=== PATIENT | female | born 1965 | race Caucasian/White ===

== ENCOUNTER 2017-02-07 16:45 | Inpatient (IN) | payer SELFPAY ==
--- NOTE | ~2017-02-07 | HP ---
History And Physical [place] [id number] [facility] [place]. [address] NAME: ISMAEL CARPENTER : 67 STATUS : ADM Jorge PAT#: [id number] AGE: 52 ADM/REG DATE : 02/07/17 MR#: [id number] REPORT SERV DATE: 02/08/17 DICTATED BY: STEFFEN PIPER DATE: 02/08/17 REPORT STATUS : Draft TRANSCRIBED BY: MODL DATE: 02/08/17 DATE OF ADMISSION: 02/07/2017 REASON FOR ADMISSION: Chest and abdominal pain. HISTORY OF PRESENT ILLNESS: Ms. Carpenter is a 52-year-old female with history of COPD, hypertension, who presents to the emergency department today with a chief complaint of pain from her thighs to her thorax. The patient says she began having an episode of chest pain six days ago like a knife stabbing in her chest with associated nausea, took Zofran, did not seek medical attention because of lack of insurance and concern for payment. She also had at around the same time some left lower extremity thigh pain that put her to bed. She has had episodic vomiting with difficulty doing her regular activities, although the leg pain has ceased. She continues to have issues with chest pain throughout the course of the week including radiating to her left arm with associated hand numbness in the right side as well. The chest pain at the current time remains sharp, radiating to her bilateral shoulder blades. She also complains of right upper quadrant pain, but no further leg pain, though she still has some tightness in her legs. She got some nitroglycerin in the emergency department that did not alleviate the pain, it made it feel somewhat better. She has flank pain, dizziness, shortness of breath, but no coughing or wheezing. No fever and chills. No gastrointestinal/genitourinary complaints. No other neurologic complaints. She denies any bleeding. She has noticed some weight gain over the previous year or so. PAST MEDICAL HISTORY: Otherwise negative. MEDICATIONS: She takes only dvzz-qck-szoopii medications. PRIMARY CARE PHYSICIAN: Has no primary care provider. ALLERGIES: HAS NO ALLERGIES. FAMILY HISTORY: Positive for coronary artery disease. SOCIAL HISTORY: The patient is a smoker. PHYSICAL EXAMINATION: VITAL SIGNS: On presentation, blood pressure 175/99, pulse 99, respiration 18, afebrile, satting 95%. GENERAL: Awake, alert, and oriented x3. No apparent distress. HEENT: Pupils are equal and reactive to light. Extraocular movements are intact. No cranial nerve deficits. Moist membranes oropharynx. Normal oropharynx. NECK: No jugular venous distention, carotid bruits, lymphadenopathy, or goiter. CARDIAC: Regular rate and rhythm. No murmurs, gallops, or rubs. She had a very tender precordium, a minimally tender back throughout her upper back bergeron. She had however exquisite subxiphoid tenderness and in her lower rib cage. LUNGS: Clear to auscultation bilaterally. ABDOMEN: Severe epigastric tenderness with right upper quadrant tenderness, but no Smith History And Physical [address] [address] NAME: ISMAEL CARPENTER : 67 STATUS : ADM Jorge PAT#: [id number] AGE: 52 ADM/REG DATE : 02/07/17 MR#: [id number] REPORT SERV DATE: 02/08/17 DICTATED BY: STEFFEN PIPER DATE: 02/08/17 REPORT STATUS : Draft TRANSCRIBED BY: HORACE DATE: 02/08/17 sign. She had less significant pain in her lower quadrants bilaterally. There was some moderate left upper quadrant pain. Bowel sounds are normal and active. She is obese. EXTREMITIES: No cyanosis, clubbing, or edema. She had a slight amount of pain in her left thigh, but no Homans sign nor cord. She had good pulses and capillary refill. NEUROLOGIC: Intact sensory motor function in all four extremities. SKIN: Warm and dry. PSYCHIATRIC: She is appropriate. LABORATORY EVALUATION: Sodium 134, potassium 3.7, chloride 103, bicarb 27, BUN 6, creatinine 0.7, glucose 121. White count 10,000, H and H 15 and 44, platelets 191. Troponin-I negative. Chest x-ray, reviewed by me showed no apparent disease. EKG reveals normal sinus rhythm. No ST or T-wave changes. No S1, Q3, T3 pattern. Doppler ultrasound of the left lower extremity was negative. I reviewed the images myself and saw no arterial issues either. ASSESSMENT AND PLAN: 1. Severe intractable epigastric pain most likely due to esophageal spasm likely due to gastroesophageal reflux disease. It was more likely than pancreatic or biliary causes. Pericardial causes are also very unlikely as are her venous thromboembolic disease, ischemia, or dissecting aorta. We will check a lipase sedimentation rate, D-dimer, and troponin. Recommend a topical care to the esophagus, proton pump inhibitor, and Carafate. If symptoms persist on 02/08 after treating these milder causes, we may consider a more thorough evaluation such as an ultrasound for evaluation of the gallbladder and of the aorta. Nuclear Medicine stress testing I think would be behind all these in probability, but assessing risk factors given her tobacco abuse to exclude diabetes or hyperlipidemia would be reasonable. 2. History of chronic obstructive pulmonary disease based on tobacco abuse. No current exacerbation. 3. Elevated blood pressure, history of hypertension. We will follow this expectantly. Beta-blockers will be scheduled as well as nitroglycerin given the unlikely, but not completely excluded cardiovascular cause of her condition. ESTER/HORACE Steffen Piper M.D. / [id number] CC: Steffen Piper M.D.
--- NOTE | ~2017-02-07 | EGD ---
EGD REPORT [facility] [address] [place] [address] NAME: LEXI CARPENTER : 67 STATUS : ADM Jorge PAT#: [id number] AGE: 52 ADM/REG DATE : 02/07/17 MR#: [id number] REPORT SERV DATE: 02/12/17 DICTATED BY: TYRON MENCHACA DATE: 02/12/17 REPORT STATUS : Draft [facility] DATE: 02/12/17 Endoscopy Center Patient Name: Lexi Carpenter Date of : 1965 Attending MD: TYRON MENCHACA MD Procedure Date No Time: 02/12/2017 Procedure: Colonoscopy Indications: Abdominal pain in the right lower quadrant, Abdominal pain in the right upper quadrant Referring MD: CATRACHITA ASKEW MD Medicines: Monitored Anesthesia Care Complications: No immediate complications. Estimated blood loss: Minimal. Procedure: Pre-Anesthesia Assessment: - ASA Grade Assessment: III - A patient with severe systemic disease. After I obtained informed consent, the scope was passed under direct vision. Throughout the procedure, the patient's blood pressure, pulse, and oxygen saturations were monitored continuously. The [id number] was introduced through the anus and advanced to the terminal ileum, with identification of the appendiceal orifice and IC valve. The colonoscopy was performed without difficulty. The patient tolerated the procedure well. The quality of the bowel preparation was good. Findings: The perianal and digital rectal examinations were normal. Pertinent negatives include no palpable rectal lesions. A sessile polyp was found in the sigmoid colon. The polyp was 4 mm in size. The polyp was removed with a cold biopsy forceps. Resection and retrieval were complete. Estimated blood loss was minimal. The terminal ileum appeared normal. The exam was otherwise without abnormality on direct and retroflexion views. Impression: - One 4 mm polyp in the sigmoid colon. Resected and retrieved. - The examination was otherwise normal on direct and retroflexion views. Recommendation: - Return patient to [facility] for ongoing care. - Await pathology results. - Repeat colonoscopy for surveillance based on pathology results. EGD REPORT [facility] [address] [facility] [address] [place] [address] NAME: LEXI CARPENTER : [birth year] STATUS : ADM Jorge PAT#: [id number] AGE: 52 ADM/REG DATE : 02/07/17 MR#: [id number] REPORT SERV DATE: 02/12/17 DICTATED BY: TYRON MENCHACA DATE: 02/12/17 REPORT STATUS : Draft TRANSCRIBED BY: [employer] DATE: 02/12/17 - Return to GI clinic in 6 weeks. Procedure Code(s): --- Professional --- 48712, Colonoscopy, flexible, proximal to splenic flexure; with biopsy, single or multiple Diagnosis Code(s): --- Professional --- D12.5, Benign neoplasm of sigmoid colon R10.31, Right lower quadrant pain R10.11, Right upper quadrant pain CPT copyright 2013 [employer]. All rights reserved. The codes documented in this report are preliminary and upon pastry wrapper review may be revised to meet current compliance requirements. Tyron Menchaca MD TYRON MENCHACA MD 02/12/2017 9:44 AM This report has been signed electronically. Number of Addenda: 0 Note Initiated On: 02/12/2017 8:44 AM Scope Withdrawal Time 0 hours 9 minutes 13 seconds [address] [place] [address]
--- NOTE | ~2017-02-07 | DS ---
Discharge Summary [place] [address] [place]. [address] NAME: ISMAEL CARPENTER : 67 STATUS : DIS IN PAT#: [id number] AGE: 52 ADM/REG DATE : 02/07/17 MR#: [id number] REPORT SERV DATE: 02/16/17 DICTATED BY: BLOSSOM WINTERS DATE: 02/12/17 REPORT STATUS : Draft TRANSCRIBED BY: HORACE DATE: 02/12/17 ADMISSION DATE: 02/07/2017 DISCHARGE DATE: 02/12/2017 DISCHARGE DIAGNOSES: 1. Epigastric abdominal plain/chest pain. 2. History of tobacco abuse. 3. Hypertension. 4. NSAID use. DISCHARGE MEDICATIONS: Include 1. Levsin 0.125 mg sublingual before meals. 2. Reglan 5 mg p.o. with meals and at bedtime. 3. Protonix 40 mg p.o. b.i.d. 4. Mylicon 80 mg p.o. b.i.d. 5. Carafate 1 g p.o. with meals and at bedtime. 6. Multivitamin p.o. daily. 7. ProAir HFA 2 puffs inhaled q.6 hours p.r.n. 8. Proventil neb 0.5 mL inhaled q.6 p.r.n. DISPOSITION AND FOLLOWUP: The patient is medically stable for discharge. Follow up with primary care physician in one week. HISTORY AND PHYSICAL: Per initial assessment. DISCHARGE VITALS: Temperature 96.7, heart rate 54, blood pressure 97/51, respiratory rate 16, and O2 saturation 92 on room air. DISCHARGE LABS: WBC of 6.7, hemoglobin 13.2, hematocrit 39.7, platelets 151. Sodium 139, potassium 3.3, chloride 103, bicarb 30, BUN 3, creatinine 0.72. Calcium 9.1. TSH 2.2. Hemoglobin A1c of 5.2. IMAGIN. Abdominal survey, impression;. a. Status post cholecystectomy. There is no biliary dilatation. b. Obscuration of portion of the pancreas by gas. Otherwise, negative abdominal ultrasound. 2. Chest x-ray, impression; normal. 3. GI study with air, impression; no upper intestinal ulcerative disease identified. 4. Venous Doppler. No evidence of acute left lower extremity deep venous thrombosis. 5. No evidence of abdominal aortic aneurysm. Normal flow into abdominal aorta and right common iliac artery. 6. Left common iliac artery is obscured by gas. HOSPITAL COURSE: 52-year-old woman with a past medical history of COPD and hypertension, comes into the ED complaining of epigastric abdominal pain/chest pain. The patient was Discharge Summary [place] [address] [facility] [place]. [address] NAME: ISMAEL CARPENTER : [birth year] STATUS : DIS IN PAT#: [id number] AGE: 52 ADM/REG DATE : 02/07/17 MR#: [id number] REPORT SERV DATE: 02/16/17 DICTATED BY: BLOSSOM WINTERS DATE: 02/12/17 REPORT STATUS : Draft TRANSCRIBED BY: HORACE DATE: 02/12/17 admitted for further workup. No evidence of acute coronary syndrome. The patient had wished Gastroenterology to come and evaluate her. GI was consulted. They were graceful enough to do endoscopy and colonoscopy. EGD results per procedure. EGD showed gastritis. Colonoscopy is negative showed one 4 mm polyp, which was removed. By the day of discharge, the patient's symptoms have resolved. She has responded well to medical management, which has included PPI, simethicone, Carafate, Reglan, and Levsin. The patient is medically stable for discharge. Follow up with primary care physician in one week. Instructed to abstain from NSAIDs. Instructed to follow GI recommendations. Total time for discharge planning 35 minutes. DICTATED BY: MD DOROTHY Rangel/HORACE Clint Ruvalcaba MD / [id number] CC: Clint Ruvalcaba MD NO PCP
--- NOTE | ~2017-02-07 | EGD ---
EGD REPORT [facility] [address] [address] NAME: LEXI CARPENTER : 67 STATUS : ADM Jorge PAT#: [id number] AGE: 52 ADM/REG DATE : 02/07/17 MR#: [id number] REPORT SERV DATE: 02/11/17 DICTATED BY: TYRON MENCHACA DATE: 02/11/17 REPORT STATUS : Draft [facility]ED [facility]: [facility] DATE: 02/11/17 Endoscopy Center Patient Name: Lexi Carpenter Date of : 1965 Attending MD: TYRON MENCHACA MD Procedure Date No Time: 02/11/2017 Procedure: Upper GI endoscopy Indications: Abdominal pain in the right upper quadrant, Abdominal pain in the right lower quadrant Medicines: Sedation Required Anesthesia Staff Assistance, Monitored Anesthesia Care Complications: No immediate complications. Estimated blood loss: Minimal. Procedure: Pre-Anesthesia Assessment: - ASA Grade Assessment: III - A patient with severe systemic disease. After obtaining informed consent, the endoscope was passed under direct vision. Throughout the procedure, the patient's blood pressure, pulse, and oxygen saturations were monitored continuously. The GIF [id number] was introduced through the mouth, and advanced to the third part of duodenum. The upper GI endoscopy was accomplished without difficulty. The patient tolerated the procedure well. Findings: The esophagus was normal. Localized mild inflammation characterized by linear erosions was found in the gastric body and in the gastric antrum. Biopsies were taken with a cold forceps for Helicobacter pylori testing. Estimated blood loss was minimal. The examined duodenum was normal. The cardia and gastric fundus were normal on retroflexion. Impression: - Gastritis. Biopsied. - Otherwise normal examination. Recommendation: - Return patient to hospital [facility] for ongoing care. - Await pathology results. - Use Protonix (pantoprazole) 40 mg PO daily. - Trial of simethacone 80 mg PO BID - Perform a colonoscopy tomorrow. Procedure Code(s): --- Professional --- 06356, Esophagogastroduodenoscopy, flexible, transoral; EGD REPORT [facility] [address] [place]. [address] NAME: LEXI CARPENTER : 67 STATUS : ADM Jorge PAT#: [id number] AGE: 52 ADM/REG DATE : 02/07/17 MR#: [id number] REPORT SERV DATE: 02/11/17 DICTATED BY: TYRON MENCHACA DATE: 02/11/17 REPORT STATUS : Draft TRANSCRIBED BY: [employer] DATE: 02/11/17 with biopsy, single or multiple Diagnosis Code(s): --- Professional --- K29.70, Gastritis, unspecified, without bleeding R10.11, Right upper quadrant pain R10.31, Right lower quadrant pain CPT copyright 2013 [employer]. All rights reserved. The codes documented in this report are preliminary and upon surgical coder review may be revised to meet current compliance requirements. Tyron Menchaca MD TYRON MENCHACA MD 02/11/2017 8:40 AM This report has been signed electronically. Number of Addenda: 0 Note Initiated On: 02/11/2017 8:02 AM Scope Withdrawal Time 0 hours 0 minutes 0 seconds [address] [place] [address]
--- NOTE | ~2017-02-07 | CN ---
Consultation Report [facility] [address] [place]. [address] NAME: ISMAEL CARPENTER : [birth year] STATUS : ADM Jorge PAT#: [id number] AGE: 52 ADM/REG DATE : 02/07/17 MR#: [id number] REPORT SERV DATE: 02/10/17 DICTATED BY: JOSE WILL DATE: 02/10/17 REPORT STATUS : Draft TRANSCRIBED BY: MODL DATE: 02/10/17 GI CONSULTATION DATE OF CONSULTATION: 02/10/2017 REASON FOR CONSULTATION: Evaluation and management of abdominal pain. HISTORY OF PRESENT ILLNESS: Ms. Carpenter is a pleasant 52-year-old female patient, who presented to [facility] on the 02/07/2017 with a chief complaint of chest and abdominal discomfort. She gives a history of symptom onset roughly one week ago. She states that she had chest pain that felt like someone stabbing her in the chest with a knife. She has been having associated nausea. She states that she did not seek any medical attention secondary to lack of insurance. She tried to self medicate at home, however, secondary to the progression and increase in her symptoms, she came in for further evaluation. She states that she has had some episodes where she has vomited. She has chronic pain, which she states in the past, she was on pain management. In 2012, she was on multiple pain medications, but has been off since that point in time. She admits to taking multiple doses of Advil daily. She does take Advil PM every night, she states she has done so for the past year. She does not have a gallbladder, was removed multiple years ago. She is complaining of a right upper quadrant really underneath her breasts discomfort that is sore to touch. She reports that any oral intake will increase the pain that she feels. She has had some mild constipation. She denies melena or hematochezia. She has never had EGD or colonoscopy. She has no GI family history. Secondary to the persistence of her symptoms, GI consultation was requested. She has had un upper GI study with air. While she has been here, no upper intestinal or ulcerative disease was found. Abdominal ultrasound revealed a normal common bile duct 7 mm. Normal liver with normal hepatopetal flow. The spleen was normal. Pancreas appeared normal. She had normal liver enzymes while being here; however, her pain persists. I have seen, assessed, and discussed everything with Ms. Carpenter. We will plan on upper endoscopy tomorrow. I did discuss the risks, benefits, alternatives, and complications with her to include, but not limited to risk of bleeding, perforation, infection, reaction to medication, cardiac and pulmonary side effects and/or . She is agreeable to proceed. PAST MEDICAL HISTORY: She has a past medical history for obesity, COPD with tobacco abuse, NSAID abuse, chronic pain, and degenerative joint disease. PAST SURGICAL HISTORY: Includes cholecystectomy. FAMILY HISTORY: Negative from a GI standpoint. States mother passed from metastatic breast cancer. ALLERGIES: SHE HAS NO KNOWN ALLERGIES. HOME MEDICATIONS: ProAir HFA, Proventil, Advil PM, and Geritol multivitamin. Consultation Report [address] [place]. [address] NAME: ISMAEL CARPENTER : 67 STATUS : ADM Jorge PAT#: [id number] AGE: 52 ADM/REG DATE : 02/07/17 MR#: [id number] REPORT SERV DATE: 02/10/17 DICTATED BY: JOSE WILL DATE: 02/10/17 REPORT STATUS : Draft TRANSCRIBED BY: HORACE DATE: 02/10/17 REVIEW OF SYSTEMS: A 10-point review of systems has been obtained with pertinent positives being addressed in the history of present illness. PHYSICAL EXAMINATION: VITAL SIGNS: Temperature 98.3, pulse 59, respirations 14, and blood pressure 152/67. NEUROLOGIC: Reveals an alert, obese female, sitting up in the bed with no obvious focal deficits. She is cooperative. She is in no apparent distress. She is awake. She is alert. She is oriented x3. HEAD, EARS, EYES, NOSE, AND THROAT: Anicteric. Pupils are equal, round, reactive to light accommodation. Normocephalic and atraumatic. NECK: No JVD. No palpable nodes. LUNGS: Diminished throughout. Normal respiratory effort exhibited. Equal expansion. CARDIOVASCULAR SYSTEM: Regular rate and rhythm. ABDOMEN: Obese, nondistended. She has some mild tenderness to the right upper quadrant without rebound or guarding. EXTREMITIES: No edema. Normal distal pulses. SKIN: Warm, dry, and intact. PERTINENT LABORATORY DATA: Sodium 140, potassium 4.1, BUN is 4, and creatinine 0.77. White count 5.5, hemoglobin 13.3, hematocrit 41.0, and platelet count 166. Total bilirubin is 0.5, alkaline phosphatase 86, ALT 27, AST 16, lipase 207. ASSESSMENT AND PLAN: 1. Epigastric abdominal pain. Differential diagnosis includes peptic ulcer disease, Helicobacter pylori, gastritis. 2. Noncardiac chest pain. 3. History of tobacco abuse. 4. History of hypertension. 5. Daily use of NSAIDs multiple doses long-standing history. PLAN: 1. Clear-liquid diet. 2. N.p.o. after midnight. 3. EGD in the morning with Dr. Walter. 4. Continue her Carafate, her PPI. We will add a GI cocktail as well as Levsin. A.m. labs. Other recommendations to follow endoscopy. ELAINA/HORACE [place] LUCIE Michael Consultation Report [address] [address] NAME: ISMAEL CARPENTER : [birth year] STATUS : ADM Jorge PAT#: [id number] AGE: 52 ADM/REG DATE : 02/07/17 MR#: [id number] REPORT SERV DATE: 02/10/17 DICTATED BY: JOSE WILL DATE: 02/10/17 REPORT STATUS : Draft TRANSCRIBED BY: HORACE DATE: 02/10/17 / [id number] CC: Clint Ruvalcaba MD NO PCP
[2017-02-07 15:29] LABS: ASCORBIC ACID (UR NOT ORDER) NEG (NEG); BILIRUBIN, URINE NEGATIVE (NEG); ER URINALYSIS TAT 0 Hrs 07 Mins; KETONE, URINE NEGATIVE (NEG); LEUKOCYTE ESTERASE(NOT OR NEG (NEG); NITRITE (URINE) NEG (NEG); WBC (NOT ORDERED) (RFLEX) 2 (0-5)
[2017-02-07 15:46] LABS: BASOPHILS 0.3 %; BASOPHILS ABSOLUTE 0.03 10/3/uL (0.0-0.16); ER CBC TAT 0 Hrs 07 Mins; HEMATOCRIT 44.4 % (36.0-48.0); HEMOGLOBIN 15.1 g/dL (12.0-16.0); IMMATURE GRANULOCYTES 0.2 %; IMMATURE GRANULOCYTES ABSOLUTE 0.02 10/3/uL (0.0-0.11); LYMPHOCYTES 21.2 %; LYMPHOCYTES ABSOLUTE 2.02 10/3/uL (0.67-4.30); MANUAL DIFF NO %; MEAN CORPUSCULAR HEMOGLOB 30.1 pg (26.0-34.0); MEAN CORPUSCULAR VOLUME 88.6 fL (80-100); MEAN PLATELET VOLUME 12.2 fL (9.2-13.0); MONOCYTES 4.8 %; MONOCYTES ABSOLUTE 0.46 10/3/uL (0.21-1.20); NEUTROPHILS 72.5 %; NEUTROPHILS ABSOLUTE 6.92 10/3/uL (2.02-8.40); PLATELET COUNT 196 10/3/uL (150-400); RBC DISTRIBUTION WIDTH 13.8 % (12.0-16.0); RED CELL COUNT 5.01 10/6/uL (4.0-5.6); WHITE BLOOD CELLS 9.6 10/3/uL (4.5-10.5)
[2017-02-07 15:54] LABS: PARTIAL THROMBO TIME 35.4 SEC (22.5-37.2)
[2017-02-07 16:12] LABS: ALBUMIN 3.9 G/DL (3.5-5.0); BUN (BLOOD UREA NITROGEN) 6 MG/DL (6-23); CALCIUM, SERUM 9.2 MG/DL (8.5-10.4); CHLORIDE, SERUM 103 MMOL/L (96-112); CO2 (CARBON DIOXIDE) 27 MMOL/L (24-34); CREATININE 0.72 MG/DL (0.55-1.02); GFR AFRICAN AMERICAN 113 ML/MIN (>=60); GFR NON AFRICAN AMERICAN 98 ML/MIN (>=60); POTASSIUM, SERUM 3.7 MMOL/L (3.5-5.3); SGOT(AST) 16 U/L (5-40); SGPT(ALT) 27 U/L (5-65); SODIUM, SERUM 139 MMOL/L (135-148); TOTAL BILIRUBIN 0.5 MG/DL (0-1.2); TOTAL PROTEIN 7.5 G/DL (6.0-8.5); TROPONIN I <0.02 NG/ML (<0.05)
[2017-02-07 16:13] LABS: ALKALINE PHOSPHATASE 86 U/L (45-117); CHEST PAIN PROFILE TAT 0 Hrs 33 Mins; DIRECT BILIRUBIN < 0.1 MG/DL (0.0-0.4); GLUCOSE, SERUM 121 MG/DL (60-99); INDIRECT BILIRUBIN(NOT ORDER) 0.4 MG/DL (0.1-0.9)
[~2017-02-07 16:45] MED LIST: ADVIL PM1 CAP PO; MULTIVITAMIN PO
[2017-02-07] MEDS ORDERED: PROAIR HFA INH (16:51)
[2017-02-07] MEDS ORDERED: ALBUTEROL5 INH (16:52)
[2017-02-07 22:09] LABS: D-DIMER QUANTITATIVE 0.53 ug/mLFEU (< 0.50)
[2017-02-09 05:56] LABS: BASOPHILS 0.2 %; BASOPHILS ABSOLUTE 0.01 10/3/uL (0.0-0.16); EOSINOPHILS 1.4 %; EOSINOPHILS ABSOLUTE 0.08 10/3/uL (0.0-0.53); HEMOGLOBIN 13.3 g/dL (12.0-16.0); LYMPHOCYTES 39.1 %; LYMPHOCYTES ABSOLUTE 2.16 10/3/uL (0.67-4.30); MEAN CORPUS HGB CONC 32.4 g/dL (32.0-36.0); MEAN CORPUSCULAR HEMOGLOB 29.8 pg (26.0-34.0); MEAN PLATELET VOLUME 12.5 fL (9.2-13.0); MONOCYTES 9.6 %; MONOCYTES ABSOLUTE 0.53 10/3/uL (0.21-1.20); NEUTROPHILS 49.7 %; NEUTROPHILS ABSOLUTE 2.74 10/3/uL (2.02-8.40); PLATELET COUNT 166 10/3/uL (150-400); RBC DISTRIBUTION WIDTH 13.7 % (12.0-16.0); RED CELL COUNT 4.47 10/6/uL (4.0-5.6)
[2017-02-09 06:06] LABS: MANUAL DIFF NO %; MEAN CORPUSCULAR VOLUME 91.7 fL (80-100); WHITE BLOOD CELLS 5.5 10/3/uL (4.5-10.5)
[2017-02-09 06:07] LABS: BUN (BLOOD UREA NITROGEN) 4 MG/DL (6-23); C-REACTIVE PROTEIN 4.4 MG/L (<8.0); CALCIUM, SERUM 8.9 MG/DL (8.5-10.4); CHLORIDE, SERUM 106 MMOL/L (96-112); CHOL/HDL RATIO(NOT ORDER) 4.5 (0-5); CHOLESTEROL 185 MG/DL (< 200); CO2 (CARBON DIOXIDE) 29 MMOL/L (24-34); CREATININE 0.77 MG/DL (0.55-1.02); GFR AFRICAN AMERICAN 104 ML/MIN (>=60); GFR NON AFRICAN AMERICAN 89 ML/MIN (>=60); GLUCOSE, SERUM 104 MG/DL (60-99); HDL CHOLESTEROL 41 MG/DL (> 49); LDL CHOLESTEROL 114 MG/DL (< 130); NON-HDL CHOLESTEROL 144 MG/DL (< 160); POTASSIUM, SERUM 4.1 MMOL/L (3.5-5.3); SODIUM, SERUM 140 MMOL/L (135-148); TRIGLYCERIDE 150 MG/DL (< 150)
[2017-02-09 19:44] LABS: FREE T4 1.24 NG/DL (0.76-1.46)
[2017-02-11 05:05] LABS: BASOPHILS 0.1 %; BASOPHILS ABSOLUTE 0.01 10/3/uL (0.0-0.16); EOSINOPHILS 1.2 %; EOSINOPHILS ABSOLUTE 0.08 10/3/uL (0.0-0.53); HEMATOCRIT 39.7 % (36.0-48.0); HEMOGLOBIN 13.2 g/dL (12.0-16.0); IMMATURE GRANULOCYTES 0.1 %; IMMATURE GRANULOCYTES ABSOLUTE 0.01 10/3/uL (0.0-0.11); LYMPHOCYTES 28.3 %; LYMPHOCYTES ABSOLUTE 1.89 10/3/uL (0.67-4.30); MEAN CORPUS HGB CONC 33.2 g/dL (32.0-36.0); MEAN CORPUSCULAR HEMOGLOB 29.8 pg (26.0-34.0); MEAN CORPUSCULAR VOLUME 89.6 fL (80-100); MEAN PLATELET VOLUME 12.2 fL (9.2-13.0); MONOCYTES 6.4 %; MONOCYTES ABSOLUTE 0.43 10/3/uL (0.21-1.20); NEUTROPHILS 63.9 %; NEUTROPHILS ABSOLUTE 4.26 10/3/uL (2.02-8.40); PLATELET COUNT 151 10/3/uL (150-400); RBC DISTRIBUTION WIDTH 13.8 % (12.0-16.0); RED CELL COUNT 4.43 10/6/uL (4.0-5.6); WHITE BLOOD CELLS 6.7 10/3/uL (4.5-10.5)
[2017-02-11 05:06] LABS: MANUAL DIFF NO %
[2017-02-11 05:11] LABS: PROTIME (NOT ORD) 13.5 SEC (12.0-14.5)
[2017-02-11 05:33] LABS: BUN (BLOOD UREA NITROGEN) 3 MG/DL (6-23); CALCIUM, SERUM 9.1 MG/DL (8.5-10.4); CHLORIDE, SERUM 103 MMOL/L (96-112); CO2 (CARBON DIOXIDE) 30 MMOL/L (24-34); CREATININE 0.72 MG/DL (0.55-1.02); GFR AFRICAN AMERICAN 112 ML/MIN (>=60); GFR NON AFRICAN AMERICAN 97 ML/MIN (>=60); GLUCOSE, SERUM 96 MG/DL (60-99); POTASSIUM, SERUM 3.3 MMOL/L (3.5-5.3); SODIUM, SERUM 139 MMOL/L (135-148)
[2017-02-12] MEDS ORDERED: LEVSINTAB PO (18:00)
[2017-02-12] MEDS ORDERED: REG5 PO (18:01)
[2017-02-12] MEDS ORDERED: PROTONIX PO (18:03)
[2017-02-12] MEDS ORDERED: MYTAB GAS80 MG PO (18:05)
[2017-02-12] MEDS ORDERED: SUCR PO (18:07)
== END 2017-02-12 21:21 | disposition home or self-care (01) | DRG 392 ==
LOC: ER 16:45 → CDU1 18:16 → CDU2 18:41 → 7NO 02-11 14:52
PROVIDERS: Emergency Medicine; Internal Medicine; Internal Medicine Gastroenterology; Nurse Practitioner Family
PROC: 0DB78ZX Excision of Stomach, Pylorus, Via Natural or Artificial Opening Endoscopic, Diagnostic (ICD-10-PCS; 2017-02-11)
PROC: 0DBN8ZX Excision of Sigmoid Colon, Via Natural or Artificial Opening Endoscopic, Diagnostic (ICD-10-PCS; principal; 2017-02-12 09:20)
DX: K31.9 Disease of stomach and duodenum, unspecified (principal)
CPT/HCPCS: 71010; 74246; 76700; 80048; 80061; 80076; 81001; 82150; 82962; 83036; 83690; 83735; 84439; 84443; 84481; 84484; 85025; 85379; 85610; 85652; 85730; 86140; 88305; 93005; 93971; 93978; 99285; A9270-GY; J2405